=== PATIENT | female | born 1990 | race Caucasian/White ===

== ENCOUNTER 2018-09-28 18:18 | Emergency (ER) | payer OTHER ==
[2018-09-28] MEDS ORDERED: AMOX/CLAV 875 MG/125 MG TABLET PO STA (18:46)
--- NOTE | 2018-09-28 18:47 | ED Physician Documentation ---
PD HPI ANIMAL BITE - Stated complaint Stated Complaint: RT LEG DOG BITE - Chief complaint Chief Complaint: Wound - History obtained from History obtained from: Patient - History of Present Illness Location of injury(ies): [place] (27-year-old woman who is up-to-date on tetanus was bit by her own healthy and fully immunized dog while breaking up a dog fight just prior to arrival.) Review of Systems Constitutional: reports: Reviewed and negative Ears: reports: Reviewed and negative Throat: reports: Reviewed and negative PD PAST MEDICAL HISTORY - Past Medical History Past Medical History: Yes Cardiovascular: None Respiratory: None Neuro: Other Endocrine/Autoimmune: None GI: None HEENT: None Derm: None Other Past Medical History: epilepsy as a child. - Past Surgical History Past Surgical History: No - Present Medications Home Medications: Ambulatory Orders Medication Instructions Recorded Confirmed Amox/Clav 875/125 [Augmentin] 1 each PO Q12H #14 tablet 09/28/18 - Allergies Allergies/Adverse Reactions: Allergies Allergy/AdvReac Type Severity Reaction Status Date / Time No Known Drug Allergies Allergy Verified 09/28/18 18:32 - Social History Does the pt smoke?: No Smoking Status: Never smoker PD ED PE NORMAL - Vitals Vital signs reviewed: Yes - General General: Alert and oriented X 3, No acute distress - Extremities Extremities: Other (On the anteromedial right knee there is a tiny puncture wound, but on the posterior medial knee there is a 2-1/2 cm horizontal laceration into subcutaneous fat without distal neurovascular compromise.) - Neuro Neuro: Alert and oriented X 3, Normal speech Results - Vitals Vitals: Vital Signs - 24 hr 09/28/18 09/28/18 18:29 19:39 Temperature 36.3 C L 36.2 C L Heart Rate 86 81 Respiratory 16 19 Rate Blood Pressure 134/73 H 138/74 H O2 Saturation 98 100 Oxygen O2 Source Room air - Rads (name of study) R knee 2v Radiology: EMP read contemporaneously (NAD, no gas in joint) Procedures - Laceration (location) RLE posterior Length in cm: 3 Wound type: Linear, Into subcut fat Neurovascular status: Sensory intact, Motor intact, Vascular intact Anesthesia: Lidocaine 1% with epi Wound Preparation: Hibiclens, Irrigated copiously NS Skin layer closure: Nylon, Interrupted, Size #-0 - enter number (4-0), Sutures - enter # (7) Other: Tetanus UTD Complexity: Simple PD MEDICAL DECISION MAKING - ED course ED course: 27-year-old woman with a couple of puncture wounds about the knee from a dog bite but then a larger laceration that definitely required suturing on the posterior side. After anesthetic it was thoroughly irrigated. Sharply debrided of fat and closed. She was started on Augmentin. Tetanus is up to date. Departure - Departure Disposition: 01 Home, Self Care Clinical Impression: Animal bite with open wound, Laceration Condition: Good Record reviewed to determine appropriate education?: Yes Instructions: ED Bite Animal General, ED Laceration All Prescriptions: Amox/Clav 875/125 [Augmentin] 1 each PO Q12H #14 tablet Comments: Come back for any signs of infection which would include: Redness, swelling, drainage, increased pain, or fevers. You can wash it soap and water. Keep it covered and moist with bacitracin ointment which is available over the counter; avoid neosporin. Follow-up with your physician in about 14 days for suture removal. Discharge Date/Time: 09/28/18 19:58
[2018-09-28] MEDS ORDERED: BACITRACIN OINT TOP ONE (19:37)
[2018-09-28 19:40] VITALS: BP 138/74
--- NOTE | 2018-09-28 19:51 | XRAY Report ---
Reason: wound posterior, eval for gas in joint Procedure Date: 09/28/2018 Accession Number: [id number] / [id number] Procedure: XR - Knee 2 View RT CPT Code: FULL RESULT: EXAM: RIGHT KNEE RADIOGRAPHY EXAM DATE: 09/28/2018 07:28 PM. CLINICAL HISTORY: Posterior wound. Concern for gas and joint. COMPARISON: None. TECHNIQUE: 2 views. FINDINGS: Bones: Normal. No fractures or bone lesions. Joints: Normal. No effusion. No subluxations. Soft Tissues: No soft tissue air identified. IMPRESSION: Normal knee radiography. [facility]
== END 2018-09-28 19:58 | disposition home or self-care (01) ==
LOC: ED 18:18
DX: S81.051A Open bite, right knee, initial encounter (principal); W54.0XXA Bitten by dog, initial encounter; Y92.009 Unspecified place in unspecified non-institutional (private) residence as the place of occurrence of the external cause
CPT/HCPCS: 12002; 73560; 99283; A9270